=== PATIENT | male | born 1980 | race Caucasian/White ===

== ENCOUNTER 2021-12-04 10:48 | Emergency (ER) | payer OTHER, SELFPAY ==
[2021-12-04 10:49] VITALS: BP 160/90; PULSE 67; RESP 16; TEMP 36.8; O2SAT 100; BMI 37.5
--- NOTE | 2021-12-04 11:11 | HMH.EDUTC ---
[facility] [place] Impression: Sinusitis Qualifiers: Sinusitis location: unspecified location Chronicity: unspecified Qualified Code(s): J32.9 - Chronic sinusitis, unspecified Disposition: Home, Self-Care Condition on Discharge: Good Instructions: Sinusitis, DI for Sinusitis Additional Instructions: *Monitor Temp, Over the counter Motrin or Tylenol as directed/as needed Tylenol every 4 hours and Motrin every 6 hours (as long as your family doctor has told you that you can take it) for fever or pain. and straight to ER if unable to lower temp less than 101.0 after medication given *Warm fluids like tea with honey may help to soothe the throat *Sleep elevated *Humidifier/Vaporizer *Flonase 2 sprays in each nostril daily but be aware that it may take 2-3 days before you notice improvement Follow up IMMEDIATELY for new or worsening symptoms or no Noticeable improvement over the next 48-72 hours. 911 for difficulty breathing or swallowing Prescriptions: Amoxicillin/Potassium Clav [Amox-Clav 875-125 mg Tablet] 1 tab PO BID #14 tab Transmission Status: Pending to [id number] Fluticasone Propionate [Flonase 50mcg nasal spray 16gm] 1 spr NS DAILY #1 each Transmission Status: Pending to [id number] methylPREDNISolone [Medrol 4mg tab] 4 mg PO DIRECTED #21 tab Transmission Status: Pending to [id number] Referrals: Julius Diehl [Primary Care Provider] - As needed Time of Disposition: 11:14 Medical Decision Making - Mitch Inquiry Pt receiving controlled substance: No Mitch was queried for this patient: No Vital Signs: 12/04/21 10:49 Temperature 98.2 F Temperature Source Oral Pulse Rate [Right] 67 Respiratory Rate 16 Blood Pressure [Right Arm] 160/90 H Blood Pressure Mean [Right Arm] 113 Blood Pressure Source [Right Arm] Automatic Cuff Blood Pressure Position [Right Arm] Sitting 02 Sat by Pulse Oximetry 100 Oxygen Delivery Method Room Air [facility] [place] - General Stated complaint: sinus pressure Time Seen by Provider: 12/04/21 11:11 Mode of Arrival: Ambulatory Source of Information: Patient Limitations: No Limitations Description of Symptoms (Recalled from Triage Doc. by RN): pt c/o sinus pressure and pain that OTC meds isnt helping HEENT Symptoms (Recalled from RN notes): Yes (sinus pressure) Resp Symptoms (Recalled from RN notes): No Skin Symptoms (Recalled from RN notes): No MS Symptoms (Recalled from RN notes): No Functional Status (Recalled from RN notes): na - History of Present Illness Provider Complaint: Patient states that he has been having sinus pain and pressure along with drainage and feeling full in his right ear State that he has taken OTC medicaitons but not helped States that today makes two weeks so he came in - Related Data Previous Rx's Medication Instructions Recorded Amoxicillin/Potassium Clav 1 tab PO BID #14 tab 12/04/21 [Amox-Clav 875-125 mg Tablet] Fluticasone Propionate [Flonase 1 spr NS DAILY #1 each 12/04/21 50mcg nasal spray 16gm] methylPREDNISolone [Medrol 4mg 4 mg PO DIRECTED #21 tab 12/04/21 tab] Allergies Allergy/AdvReac Type Severity Reaction Status Date / Time No Known Allergies Allergy Verified 12/04/21 11:11 - Worker's Comp Is this a Worker's Comp case?: No [facility] History - Hepatitis A Screen Drug use history?: No High risk sexual behaviors?: No History of sexually transmitted infection?: No Currently employed?: No Childcare worker?: No Do you have indoor plumbing?: Yes Do you have electricity?: Yes Attestation statement:: This patient has been screened for Hepatitis A risk factors. I have reviewed the patient's past medical history: Yes ROS Obtained: Yes All systems reviewed & no additional complaints, Yes Systems reviewed as appropriate & no additional complaints - Constitutional Constitutional: Reports system reviewed and no additional complaints, except as docu, Reports headache(s) - ENT
[2021-12-04 11:18] VITALS: BP 160/90; PULSE 64; RESP 16; TEMP 36.8; O2SAT 98
== END 2021-12-04 11:21 | disposition home or self-care (01) ==
PROVIDERS: Emergency Provider Nurse Practitioner; PCP Pediatrics
DX: J32.9 Chronic sinusitis, unspecified (principal); Z79.51 Long term (current) use of inhaled steroids; Z79.52 Long term (current) use of systemic steroids
CPT/HCPCS: 99213; G0463

== ENCOUNTER → 2023-04-26 09:30 | Outpatient (CLI) | payer OTHER, SELFPAY ==
[2023-04-26 16:35] LABS: Basophils % 0.5 % (0.1-2.0); Eosinophils # 0.3 K/mm3 (0.0-0.4); Hematocrit 53.3 % (42.0-52.0); Hemoglobin 17.4 g/dL (14.1-18.0); Lymphocytes # 1.9 K/mm3 (0.7-4.5); Lymphocytes % 21.5 % (10-50); Mean Corpuscular HGB Conc 32.6 g/dL (31.8-35.4); Mean Corpuscular Hemoglobin 28.6 pg (27.0-31.2); Mean Corpuscular Volume 87.8 fl (80-94); Monocytes # 0.7 K/mm3 (0.1-1.0); Monocytes % 7.9 % (1.7-9.3); Neutrophils % 67.1 % (37.0-80.0); Platelet Count 223 K/mm3 (142-424); Red Blood Count 6.07 M/mm3 (4.60-6.20); Red Cell Distribution Width 13.3 % (11.5-17.5)
[2023-04-26 16:50] LABS: Alanine Aminotransferase 36 U/L (12-78); Albumin Level 4.3 g/dl (3.5-5.0); Albumin/Globulin Ratio 1.5 (1.1-1.8); Alkaline Phosphatase 77 U/L (38-126); Aspartate Amino Transferase 31 U/L (17-59); Bilirubin,Total 0.8 mg/dl (0.2-1.3); Blood Urea Nitrogen 15 mg/dl (9-20); Calcium 9.1 mg/dl (8.4-10.2); Carbon Dioxide 26 mmol/L (22.0-30.0); Chloride 106 mmol/L (98-107); Chol/HDL Ratio 3.7 (1-3.5); Cholesterol 170 mg/dl (140-200); Estimated Glomerular Filt Rate 92 ml/min (>60); GFR (African American) 111 ML/MIN (>60); Globulin 2.8 g/dL (1.3-3.2); Glucose 99 mg/dl (74-100); HDL Cholesterol 46 mg/dl (40-60); Sodium 140 mmol/L (136-145); Total Protein,Serum 7.1 g/dl (6.3-8.2); Triglycerides 199 mg/dl (30-150); VLDL Cholesterol 40 mg/dL (0-40)
[2023-04-26 17:01] LABS: Direct LDL Cholesterol 91.92 mg/dL (100-129)
== END ==
LOC: LAB.DROPOF 04-27 06:40
PROVIDERS: PCP Family Medicine; Visit Provider Family Medicine
DX: R94.31 Abnormal electrocardiogram [ECG] [EKG] (principal)
CPT/HCPCS: 80053; 80061; 85025

== ENCOUNTER 2025-07-10 08:33 | Outpatient (CLI) | payer OTHER, SELFPAY ==
--- NOTE | 2025-07-10 08:36 | XR_ITS ---
FINAL REPORT CLINICAL HISTORY: left knee pain from working out - pain since sep FINDINGS: AP, lateral and oblique views of the left knee were obtained. There is no prior exam for comparison. There is no acute osseous abnormality of the left knee. There is mild degenerative joint disease. There are changes from ACL reconstruction. There is no joint effusion. IMPRESSION: Degenerative and postsurgical changes. Reviewed, Interpreted and Dictated by Deepa Ramírez MD Transcribed by Neha Lucas Authenticated and [facility]
== END 2025-07-10 23:59 | disposition home or self-care (01) ==
LOC: RAD 08:34
PROVIDERS: PCP Family Medicine; Visit Provider Physician Assistant Surgical
DX: M17.12 Unilateral primary osteoarthritis, left knee (principal); Z98.890 Other specified postprocedural states
CPT/HCPCS: 73562

== ENCOUNTER 2025-08-20 06:38 | Outpatient (CLI) | payer OTHER, SELFPAY ==
--- OUTSIDE RECORDS SUMMARY | 2025-08-20 06:40 | XMS_ITS ---
Author Organization Unknown ENCOUNTERS Encounter Performer Location Date Diagnosis Diagnosis Status Emergency [id number] [place] [address] [id number] [place] *Note: Encounters from your own facility or health system may be excluded. Allergies, Adverse Reactions, Alerts Allergen Type Severity Identification Date Medications Name Date Quantity Days Supplied GPI Number
--- OUTSIDE RECORDS SUMMARY | 2025-08-20 06:40 | XMS_ITS | Clinical Summary ---
[facility] [address] [place] [address] Care Team Providers Care Regional Sales Engineer Name Role Phone Provider, No Known Primary Care Provider Unavail able Allergies No known active allergies Medications predniSONE (DELTASONE) 10 MG tablet 6//4//2 As directed PO 21 tablet 9 Active albuterol sulfate HFA 108 (90 Base) MCG/ACT inhaler Inhale 2 puffs Every 4 (Four) Hours As Needed for Wheezing or Shortness of Air. 1 inhaler 9 Active azithromycin (ZITHROMAX Z-SANTANA) 250 MG tablet Take 2 tablets the first day, then 1 tablet daily for 4 days. 6 tablet 9 Active Family History Medical History Relation Name Comments Cancer Father Relation Name Status Comments Father Social History Tobacco Use Types Packs/Day Years Used Date Smoking Tobacco: Never Abuse Screen Answer Date Recorded Unsafe at Home or Work/School Not on file Feels Threatened by Someone? Not on file 05/2023 Does Anyone Keep You from Co ntacting Others or Doint Things Outside the Home? Not on file 07/03/2023 Physical Sign of Abuse Present Not on file 1 Housing Stability Answer Date Recorded Current Living Arrangements Not on file 05/2023 Potentially Unsafe Housing Conditions Not on arnulfo e 07/03/2023 Family and Community Support Answer Abdirizak e Recorded Help with Day-to-Day Activities Not on file 07/03/2023 Lonely or Isolated Not on file 07/03/2023 Employment Answer Date Recorded Do you want help finding or keeping work or a johnathan b? Not on file 07/03/2023 Disabilities Answer Date Recorded Concentrating, Remembering, or Making Decisions Difficulty Not on file 07/03/2023 Doing Errands Independently Difficulty Not on fi le 07/03/2023 Education Answer Date Recorded Help with school or training? Not on file Preferred Language Not on file 07/03/2023 Sex and Gender Information Value Date Recorded Sex Assigned at Not on file Legal Sex Male 12:09 PM EDT Gender Identity Not on file Sexual Orientation Not on file Last Filed Vital Signs Vital Sign Reading Time Taken Comments Blood Pressure 138/88 09/26/2018 2:47 PM EST Pulse 67 09/26/2018 2:47 PM EST Temperature 37.2 C (99 F) 09/26/2018 2:47 PM EST Respiratory Rate 12 09/26/2018 2:47 PM EST Oxygen Saturation 98% 09/26/2018 2:47 PM EST Inhaled Oxygen Concentration - - Weight 122 kg (269 lb) 09/26/2018 2:47 PM EST Height 198.1 cm (6' 6 ) 09/26/2018 2:47 PM EST Body Mass Index 31.09 09/26/2018 2:47 PM EST Plan of Treatment Health Maintenance Due Date Last Done Comments TDAP/TD VACCINES (1 - Tdap) 1998 ANNUAL PHYSICAL 09/01/2018 HEPATITIS C SCREENING 09/01/2018 COLOGUARD 02/14/2024 COLON CANCER SCREENING 5 YEA R SIGMOIDOSCOPY 02/14/2024 COLONOSCOPY 02/14/2024 COLORECTAL CANCER SCREENING 02/14/2024 CT COLONOGRAPHY 02/14/2024 FECAL OCCULT BLOOD TEST 02/14/2024 FIT Testing (1 year) 02/14/2024 INFLUENZA VACCINE 04/25/2025 Pneumococcal Vaccine 0-49 Aged Out No longer eligible based on patient's age to complete this topic Insurance [employer] Care Teams Regional Sales Engineer Relationship Specialty Start Date End Date Provider, [place] [address] PCP - General 09/01/18
--- NOTE | 2025-08-20 07:00 | MR_ITS ---
FINAL REPORT TECHNIQUE: Multiplanar and multisequence imaging of the right knee was obtained without contrast. CLINICAL HISTORY: left knee pain not relieved by interventional meds. hx knee surgery 21 years ago. tightness when bending. no injury or trauma COMPARISON: None FINDINGS: Bones: There is no acute fracture or marrow edema. There are postoperative changes from ACL reconstruction. There are no full thickness cartilage defects. Menisci: Oblique tear posterior horn medial meniscus. Anterior horn intact. Tear posterior horn lateral meniscus involving the root attachment, likely radial type tear. Ligaments: ACL graft is intact. Abnormal appearance of the PCL concerning for high-grade partial tear. Collateral ligaments intact. Tendons/Muscles: The quadriceps and patellar tendons are intact. The biceps femoris tendon and iliotibial tract are intact. The popliteus tendon is unremarkable. Other: Large joint effusion. Remaining soft tissues are normal. IMPRESSION: Changes from ACL reconstruction with intact ACL graft. Tears of the posterior horns of both medial and lateral menisci. Abnormal PCL concerning for high-grade partial tear. Reviewed, Interpreted and Dictated by Deepa Ramírez MD Transcribed by Sugey Barillas Authenticated and [facility]
== END 2025-08-20 23:59 | disposition home or self-care (01) ==
LOC: RAD 06:39
PROVIDERS: PCP Family Medicine; Visit Provider Student in an Organized Health Care Education/Training Program
DX: S83.282A Other tear of lateral meniscus, current injury, left knee, initial encounter (principal); S83.242A Other tear of medial meniscus, current injury, left knee, initial encounter; R93.6 Abnormal findings on diagnostic imaging of limbs; Z98.890 Other specified postprocedural states
CPT/HCPCS: 73721

== ENCOUNTER 2025-09-19 09:37 | Outpatient (CLI) | payer OTHER, SELFPAY ==
[2025-09-19 07:55] VITALS: BMI 40.7
--- OUTSIDE RECORDS SUMMARY | 2025-09-19 09:40 | XMS_ITS | Clinical Summary ---
[facility] Address [address] [place] [address] Care Team Providers Care Lightning Rod Erector Name Role Phone Provider, No Known Primary [...] complete this topic Insurance [employer] Care Teams Lightning Rod Erector Relationship Specialty Start Date End Date Provider, [place] [address] PCP - General 09/01/18
--- NOTE | 2025-09-19 09:51 | ECG_ITS ---
APPROVED REPORT Exam: Resting ECG HR:63 bpm ECG Measurements Heart Rate 63 AXES AL 172 P 48 QRSd 104 QRS 56 QT 381 T 68 QTc 389 Conclusion SINUS RHYTHM WITH OCCASIONAL ECTOPIC PREMATURE COMPLEXES NONSPECIFIC T-WAVE ABNORMALITY BORDERLINE ECG INTERPRETATION BASED ON A DEFAULT AGE OF 39 YEARS UNCONFIRMED REPORT Electronically signed by : Sukhjinder Ochoa MD 09/22/2025 17:32:11
[2025-09-19 09:57] LABS: Hematocrit 48.3 % (42.0-52.0); Hemoglobin 16.5 g/dL (14.1-18.0); Immature Granulocytes % 0.8 %; Mean Corpuscular HGB Conc 34.2 g/dL (31.8-35.4); Mean Corpuscular Hemoglobin 29.0 pg (27.0-31.2); Mean Corpuscular Volume 85.0 fl (80-94); Nucleated Red Blood Cells % 0 %; Platelet Count 236 K/mm3 (142-424); Red Blood Count 5.68 M/mm3 (4.60-6.20); Red Cell Distribution Width-SD 39.8 fL; White Blood Count 9.9 K/mm3 (4.8-10.8)
[2025-09-19 09:58] LABS: Chloride 108 mmol/L (98-107); Potassium 3.9 mmoL/L (3.5-5.1); Sodium 140 mmol/L (136-145)
[2025-09-19 10:01] LABS: Anion Gap 11.9 mEq/L (5-15); Blood Urea Nitrogen 22 mg/dl (9-20); Calcium 9.7 mg/dl (8.4-10.2); Carbon Dioxide 24 mmol/L (22.0-30.0); Creatinine Clearance Estimated 215 mL/min (50-200); Creatinine,Serum 0.90 mg/dl (0.66-1.25); Estimated Glomerular Filt Rate 91 ml/min (>60); GFR (African American) 110 ML/MIN (>60); Glucose 101 mg/dl (74-100)
== END 2025-09-19 23:59 | disposition home or self-care (01) ==
LOC: PREOP 09:38
PROVIDERS: PCP Family Medicine; Visit Provider Orthopaedic Surgery
DX: Z01.810 Encounter for preprocedural cardiovascular examination (principal); Z01.812 Encounter for preprocedural laboratory examination; I49.49 Other premature depolarization; R94.31 Abnormal electrocardiogram [ECG] [EKG]
CPT/HCPCS: 80048; 85025; 93005